=== PATIENT | male | born 2000 | race Caucasian/White ===

== ENCOUNTER 2023-12-28 15:19 | Inpatient (IN) ==
--- NOTE | 2023-12-28 15:32 | ED Triage Note ---
Date of Service December 28, 2023 Provider in Triage Author: Mar Silveira History of Present Illness This patient was briefly evaluated while in triage. An abbreviated physical exam was performed. This patient is a 23-year-old Male who presents to the ED for evaluation of abdominal pain. Pt. states pain moved to the "lower right. Now it's kind of between my back and stomach." Pt. denies nausea or vomiting. Wasn't hungry this morning but ate anyway. States the pain started at 6am. Denies fever. No diarrhea or constipation. No history of abdominal surgery. Physical Exam VITALS: Vitals are noted on the nurse's note and reviewed by myself. GENERAL: This is a 23 year old male, in no acute distress, nondiaphoretic, well- developed well-nourished. SKIN: No obvious rashes, edema, erythema HEAD: Normocephalic atraumatic. EYES: Conjunctivae without injection, sclerae without icterus. NECK: No JVD. LUNGS: No retractions or accessory muscle use. MUSCULOSKELETAL: Normal gait. NEURO: Patient was alert and oriented to person place and time. No focal neurological deficits. Initial orders for labs and / or imaging were placed and patient was placed in the waiting area until a bed is available. Please see further documentation for the full ED course.
[2023-12-28] MEDS: SODIUM CHLORIDE 0.9% 1,000 ML IV STA (17:50)
[2023-12-28 17:56] LABS: Basophils # (auto) 0.08 K/uL (0.00-0.20); Basophils % (auto) 0.7 %; Eosinophils # (auto) 0.06 K/uL (0.00-0.50); Eosinophils % (auto) 0.5 %; Hematocrit (blood only) 45.1 % (42.0-52.0); Hemoglobin 15.3 g/dl (14.0-18.0); Immature Granulocytes # (auto) 0.03 K/uL (0.01-0.20); Immature Granulocytes % (auto) 0.3 %; Lymphocytes # (auto) 1.67 K/uL (1.20-3.40); Lymphocytes % (auto) 15.1 %; Mean Corpuscular Hgb Conc 33.9 g/dL (32.0-36.0); Mean Corpuscular Volume 85.6 fL (80.0-100.0); Monocytes # (auto) 1.14 K/uL (0.11-0.59); Monocytes % (auto) 10.3 %; Neutrophils % (auto) 73.1 %; Platelet Count 270 K/uL (130-400); RDW Coefficient of Variation 11.8 % (11.5-14.5); RDW Standard Deviation 36.7 fL (36.4-46.3); Red Blood Count 5.27 M/uL (4.70-6.10); White Blood Count 11.08 K/ul (4.8-10.8)
[2023-12-28 18:14] LABS: Albumin Globulin Ratio 1.8 (0.9-2); Albumin Level 4.7 gm/dl (3.4-5.0); BUN Creatinine Ratio 12.4 (10-20); Bilirubin,Total 0.6 mg/dl (0.2-1.0); Calcium 9.9 mg/dl (8.6-10.3); Creatinine Clr Calc Pharmacy 105.9 ml/min; Est GFR (African American) 115.4 ml/min; Est GFR (Non-African American) 99.6 ml/min; Globulin 2.6 gm/dl (2.5-4.0); Potassium 3.9 mmol/L (3.5-5.1); Total Protein 7.3 gm/dl (6.0-8.3)
[2023-12-28] MEDS: OPTIRAY 320 100ml IV ONE (20:02)
--- NOTE | 2023-12-28 20:59 | CT Scan Report ---
CT abd pelvis oral and IV con CLINICAL HISTORY: rlq pain ro appy TECHNIQUE: Helical axial images of the abdomen and pelvis were obtained and displayed. Automated dose lowering techniques and/or adjustment according to patient size were utilized for this exam. This e xam was performed with intravenous contrast. CT DOSE: 880.85 mGy.cm COMPARISON: None available at the time of this dictation. FINDINGS: Lower chest: No acute abnormality. Liver: Unremarkable. No focal lesions are seen. Gallbladder and biliary tree: No calcified gallstones. Normal caliber wall. No intra- or extrahepatic biliary ductal dilation. Pancreas: Unremarkable, no focal lesions. Spleen: Unremarkable. Adrenals: Unremarkable. Kidneys and ureters: Unremarkable. Bladder: Unremarkable. Reproductive organs: Unremarkable. Bowel: An appendicolith is seen. The appendix is enlarged measuring up to 9 mm in diameter with surro unding fat stranding. Lymph nodes Retroperitoneal: Unremarkable. Pelvic: Unremarkable. Mesenteric: Unremarkable. Peritoneum: Periappendiceal fat stranding is seen without drainable fluid collection or evidence of p erforation. Vessels: Unremarkable. Abdominal wall: Unremarkable. Bones: Unremarkable. IMPRESSION: Findings compatible with acute appendicitis without evidence of perforation or abscess formation.. ACT 112: Negative or not required by law. Electronically signed by: Jesús Villa M.D. 12/28/2023 8:58 PM
[2023-12-28] MEDS ORDERED: ACETAMINOPHEN 1,000 MG/100 ML VIAL IV PRN (21:25)
[2023-12-28] MEDS ORDERED: ONDANSETRON INJ 2 MG/ML 2 ML VIAL IV PRN (21:25)
--- NOTE | 2023-12-28 21:31 | History & Physical Report ---
Date of Service December 28, 2023 Assessment & Plan (1) Appendicitis: Plan: Due to the patient's clinical presentation, as well as the findings on imaging he will be admitted to the surgical service proceeding as follows: N.p.o. status will be implemented IV fluids will be provided for hydration Analgesics to be provided Antiemetics will be provided Antibiotics will be provided. The treating clinician the emergency department has already ordered Mefoxin and this medication will continue The patient will tentatively be scheduled for a laparoscopic, possible open appendectomy with Dr. Louis Piañ of [facility] on 12/29/2023. At the present time the patient is comfortable and nontoxic-appearing. He only has a slight leukocytosis and is noted to be normotensive without tachycardia or fever. Additional recommendations be forthcoming based on his clinical course as it unfolds, his operative findings, and his postoperative recovery SCDs abuse for DVT prevention, no chemical means due to planned surgery He will be a level 1 full code History of Present Illness Chief Complaint: Abdominal pain Primary Care Provider: NO PCP This is a 23-year-old male who presented to the emergency department secondary to abdominal pain. He notes that his abdominal pain began at approximate 6:00 AM on 12/28/2023. He notes that the pain is somewhat confined to the right flank of his abdomen but is also in the right lower quadrant. He does note that the pain is worse with certain movements. He does not note any palliative factors. He specifically denies any nausea or vomiting and denies any fevers, shakes, or chills. He has never had abdominal surgery in the past. Since arrival to the hospital the patient has had labs and imaging which I independent reviewed. He did have a CT scan of the abdomen pelvis which demonstrated findings compatible with acute appendicitisthe appendix was noted to be dilated to 9 mm with some surrounding fat stranding and an appendicolith. There is no evidence of perforation or abscess. Labs included CBC were white blood cell count was elevated 11.0. Hemoglobin and hematocrit as well as the platelet count were normal. Chemistry profile showed sodium and potassium as well as the BUN and creatinine were normal. There is no elevation of LFTs or lipase. At the time of my interview the patient was resting comfortably in bed he was in no distress. Concerning past medical history patient denies any current or past medical problems Concerning past surgical history he denies any prior surgeries Concerning social history the patient notes he vapes daily Concerning family history he does note his grandmother has diabetes Allergies Allergy/AdvReac Type Severity Reaction Status Date / Time No Known Allergies Allergy Mild Verified 12/28/23 21:36 Home Medications Medication Instructions Recorded Confirmed Type No Known Home Medications 12/28/23 12/28/23 History Past Med/Surg History Problem List (Updated 12/29/23 @ 07:13 by Rene Jensen DO) Encounter for pre-operative examination Appendicitis (Acute) Medical History No pertinent past medical history No pertinent family history Surgical History No pertinent past surgical history Social History Smoking Status: Current every day smoker Tobacco Type: E-cigarettes / Vaping Do You Dip or Chew Tobacco: No; Hx Alcohol Use: Yes Alcohol type: beer Hx Substance Use: No Preferred Language: Amharic Communication Ability: Effective Clearing Hand Required: No Beliefs That Will Affect Care: None Current Living Situation: Family Feels Safe at Home: Yes Safety Concerns: Feels Safe At This Time Assistive Devices: None Review of Systems Review of Systems: All systems reviewed & are unremarkable except as noted in HPI & below Physical Exam Constitutional: WD/WN, vitals as above Eyes: no conjunctival abnormality ENMT: Ears: no hearing impairment and no external ear abnormality Mouth: no oropharynx abnormality Oral mucous membranes are moist Neck: trachea midline Respiratory: normal respiratory effort; no respiratory distress and no labored breathing Cardiovascular: Rate/Rhythm: regular rate and regular rhythm Vessels: radial pulses present Gastrointestinal (Abdomen): Abdomen is soft and nondistended. It is also noted to be nonrigid. The patient did have pain with palpation in the right lower quadrant over McBurney's point. There is no rebound tenderness or guarding at the time of my exam. Musculoskeletal: No calf tenderness Skin: no rashes Neurologic: moves all extremities Psychiatric: A+Ox3, euthymic affect Results & Data Results & Data Vital Signs (Past 12 Hours) Vital Signs Temp Pulse Pulse Resp BP BP Pulse Ox 12/28/23 19:21 62 19 99 12/28/23 19:20 61 19 123/83 99 12/28/23 15:31 36.7 C 69 14 136/73 98 O2 Del Method 12/28/23 19:21 Room Air 12/28/23 19:20 Room Air 12/28/23 15:31 Room Air Supervising Physician Co-Signing Physician Notes I personally saw and evaluated the patient with Rolo Rainey PA-C and agree with the assessment and plan. 23 yo male with acute appendicitis CT images and results were personally viewed and interpreted by myself Admit to surgery NPO/ABX Will plan on laparoscopic appendectomy, possible open tomorrow PG Care Time/CCT Total # of Minutes Spent Total Time Spent with Patient: Total time spent is greater than 50% in coordination of care (as documented) at patient's floor/unit and/or counseling patient: Coding Level of Care Code 36556 INT INP/OBS CARE 3/75MIN Diagnoses Appendicitis K37
[2023-12-28] MEDS: cefOXitin 2,000 MG/60 ML BAG IV STA (21:37)
[2023-12-28] MEDS: SODIUM CHLORIDE 0.9% 1,000 ML IV SCH (21:39)
[2023-12-28 22:20] LABS: Partial Thromboplastin Time 27 Seconds (21-31)
[2023-12-28] MEDS: MoRPHine SULFATE 4 MG/ML 1 ML CARP\\VIAL IV PRN (22:43)
--- NOTE | 2023-12-28 23:35 | Emergency Department Note ---
History of Present Illness General Chief Complaint: Abdominal Pain Stated Complaint: LOWER RIGHT ABD PAIN Time Seen by Provider: 12/28/23 16:34 History of Present Illness Provider Complaint: abdominal pain Onset (ago): 1 day(s) Pain Consistency: constant Location: periumbilical Radiation: RLQ Severity: moderate Maximum Pain Intensity: 7 Current Pain Intensity: 7 Quality: + stabbing and + sharp Relieved By: + nothing Exacerbated By: + nothing Context: no foreign travel, no possible food poisoning, no sick contacts, no recent antibiotic use, no recent surgery/procedure or no recent injury Associated Symptoms: + nausea; no vomiting, no diarrhea, no fever, no chills, no constipation, no dysuria, no hematemesis, no hematochezia, no melena, no hematuria, no anorexia, no headache, no neck pain, no chest pain and no breathing difficulty Home Medications Medication Instructions Recorded Confirmed Type No Known Home Medications 12/28/23 12/28/23 History Allergies Allergy/AdvReac Type Severity Reaction Status Date / Time No Known Allergies Allergy Mild Verified 12/28/23 21:36 Past Med/Surg History Problem List (Updated 12/28/23 @ 23:34 by Emanuel Lobato MD) Appendicitis (Acute) Medical History No pertinent past medical history No pertinent family history Surgical History No pertinent past surgical history Social History Smoking Status: Current every day smoker Tobacco Type: E-cigarettes / Vaping Do You Dip or Chew Tobacco: No; Hx Alcohol Use: Yes Alcohol type: beer Hx Substance Use: No Preferred Language: Frisian Communication Ability: Effective Educational Resource Coordinator Required: No Beliefs That Will Affect Care: None Current Living Situation: Family Feels Safe at Home: Yes Safety Concerns: Feels Safe At This Time Assistive Devices: None Physical Exam 2 Vital Signs: Vital Signs - 24 hr 12/28/23 15:31 12/28/23 19:20 12/28/23 19:21 Temperature 36.7 C Temperature Source Oral Pulse Rate 69 62 Pulse Rate [Finger ] 61 Pulse Rhythm Regular Pulse Rhythm [Fing er] Regular Respiratory Rate 14 19 19 Respiratory Effort / Characteristics Non-Labored Sponta neous Respiratory Depth Normal Normal Respiratory Patter n Regular Blood Pressure 136/73 Blood Pressure [Ri ght Arm] 123/83 Blood Pressure Monika n 94 Blood Pressure Monika n [Right Arm] 96 Pulse Oximetry 98 99 99 Oxygen Delivery Me thod Room Air Room Air Room Air Sepsis Recent Feve r Within 48 Hours No Sepsis New/Unexpla ined Change in Men paras Status No Sepsis Action Take n by Nursing No Action Required Physical Exam: Physical Exam GENERAL: She is oriented to person, place, and time. She appears well-developed and well-nourished. She does not appear distressed. HENT: Exam performed. -Head: Normocephalic and atraumatic. -Right Ear: External ear normal. No mastoid erythema -Left Ear: External ear normal. No mastoid erythema -Mouth/Throat: The oropharynx is clear and moist. No trismus in the jaw. No dental abscesses or uvula swelling. No oropharyngeal exudate or tonsillar abscesses. EYES: Conjunctivae and EOM are normal.Right eye exhibits no discharge. Left eye exhibits no discharge. No scleral icterus. NECK: Normal range of motion. Neck supple. No JVD present. No tracheal deviation and normal range of motion present. CV: Normal rate, regular rhythm, normal heart sounds and intact distal pulses. There is no peripheral edema. Palpable radial pulses bue. PULM/CHEST: Effort normal and breath sounds normal. No respiratory distress. No stridor. She has no wheezes. She has no rales. -Chest Wall: She exhibits no tenderness. ABD: The abdomen is soft. Bowel sounds are normal. She has no distension. No mass is present. There is tenderness to palpation the right lower quadrant. There is no rebound, no guarding, no Sheets's sign. Rovsig negative MUSC/SKEL: Normal range of motion. There is no peripheral edema, tenderness or deformity. NEURO: Motor and sensation grossly intact. SKIN: Skin is warm and dry. She is not diaphoretic. PSYCH: She has a normal mood and affect. Behavior is normal. Judgment and thought content normal. Course Course 163: The patient was evaluated in room D2. A complete history and physical exam was performed 2100: Vital signs stable. White blood cell count 11. CT shows appendicitis. Patient be admitted to the general surgery team. Cefoxitin ordered for patient. Administered Medications Sodium Chloride (Nss) 1,000 mls @ 125 mls/hr IV .Q8H SLIM Stop: 01/27/24 21:29 Last Admin: 12/28/23 21:39 Dose: 125 mls/hr Documented By: ELPIDIO Morphine Sulfate (Morphine Sulfate 4 Mg/Ml 1 Ml Carp\Vial) 3 mg IV Q3H PRN PRN Reason: Severe Pain (Scale 7, 8, 9,10) Stop: 01/11/24 21:24 Last Admin: 12/28/23 22:43 Dose: 3 mg Documented By: ISABEL Discontinued Medications Sodium Chloride (Nss) 1,000 mls @ 999 mls/hr IV .Q1H1M STA Stop: 12/28/23 16:32 Last Infusion: 12/28/23 19:21 Dose: Infused Documented By: Admin: 12/28/23 17:50 Dose: 999 mls/hr Documented By: FENG Cefoxitin Sodium (Mefoxin) 2,000 mg in 60 mls @ 100 mls/hr IV NOW STA Stop: 12/28/23 21:41 Last Infusion: 12/28/23 22:45 Dose: Infused Documented By: Admin: 12/28/23 21:37 Dose: 100 mls/hr Documented By: ELPIDIO Ioversol (Optiray 320 100ml) 92 ml IV ONCE ONE Stop: 12/28/23 20:03 Last Admin: 12/28/23 20:02 Dose: 92 ml Documented By: LEONARDO Medical Decision Making Laboratory Data Attestation: I reviewed the patient's lab results. 12/28/23 17:34 12/28/23 17:34 Lab Results 12/28/23 Range/Units 17:34 WBC 11.08 H (4.8-10.8) K/ul RBC 5.27 (4.70-6.10) M/uL Hgb 15.3 (14.0-18.0) g/dl Hct 45.1 (42.0-52.0) % MCV 85.6 (80.0-100.0) fL MCH 29.0 (25.0-34.0) pg MCHC 33.9 (32.0-36.0) g/dL RDW Std Deviation 36.7 (36.4-46.3) fL RDW Coeff of Anais 11.8 (11.5-14.5) % Plt Count 270 (130-400) K/uL MPV 9.0 L (9.4-12.4) fL Immature Gran % (Auto) 0.3 % Neut % (Auto) 73.1 % Lymph % (Auto) 15.1 % [place] % (Auto) 10.3 % Eos % (Auto) 0.5 % Baso % (Auto) 0.7 % Neut # (Auto) 8.10 H (1.40-6.50) K/uL Lymph # (Auto) 1.67 (1.20-3.40) K/uL [place] # (Auto) 1.14 H (0.11-0.59) K/uL Eos # (Auto) 0.06 (0.00-0.50) K/uL Baso # (Auto) 0.08 (0.00-0.20) K/uL Immature Gran # (Auto) 0.03 (0.01-0.20) K/uL PT 11.0 (9.0-12.0) Seconds INR 1.0 (0.9-1.1) APTT 27 (21-31) Seconds PTT Ratio 1.0 Sodium 137 (136-145) mmol/L Potassium 3.9 (3.5-5.1) mmol/L Chloride 101 (98-107) mmol/L Carbon Dioxide 31 (21-32) mmol/L Anion Gap 5 (3-11) BUN 13 (6-23) mg/dl Creatinine 1.05 (0.6-1.4) mg/dl Est Cr Clr Drug Dosing 105.9 ml/min Est GFR ( Amer) 115.4 ml/min Est GFR (Non-Af Amer) 99.6 ml/min BUN/Creatinine Ratio 12.4 (10-20) Glucose 90 (70-99(Fasting)) mg/dl Calcium 9.9 (8.6-10.3) mg/dl Total Bilirubin 0.6 (0.2-1.0) mg/dl AST 15 (13-39) U/L ALT 15 (7-52) U/L Alkaline Phosphatase 50 (34-104) U/L Total Protein 7.3 (6.0-8.3) gm/dl Albumin 4.7 (3.4-5.0) gm/dl Globulin 2.6 (2.5-4.0) gm/dl Albumin/Globulin Ratio 1.8 (0.9-2) Lipase 23 (11-82) U/L Imaging Data Radiologist's Impression: Abdomen/Pelvis CT 12/28/23 17:33 CT abd pelvis oral and IV con CLINICAL HISTORY: rlq pain ro appy TECHNIQUE: Helical axial images of the abdomen and pelvis were obtained and displayed. Automated dose lowering techniques and/or adjustment according to patient size were utilized for this exam. This exam was performed with intravenous contrast. CT DOSE: 880.85 mGy.cm COMPARISON: None available at the time of this dictation. FINDINGS: Lower chest: No acute abnormality. Liver: Unremarkable. No focal lesions are seen. Gallbladder and biliary tree: No calcified gallstones. Normal caliber wall. No intra- or extrahepatic biliary ductal dilation. Pancreas: Unremarkable, no focal lesions. Spleen: Unremarkable. Adrenals: Unremarkable. Kidneys and ureters: Unremarkable. Bladder: Unremarkable. Reproductive organs: Unremarkable. Bowel: An appendicolith is seen. The appendix is enlarged measuring up to 9 mm in diameter with surrounding fat stranding. Lymph nodes Retroperitoneal: Unremarkable. Pelvic: Unremarkable. Mesenteric: Unremarkable. Peritoneum: Periappendiceal fat stranding is seen without drainable fluid collection or evidence of perforation. Vessels: Unremarkable. Abdominal wall: Unremarkable. Bones: Unremarkable. IMPRESSION: Findings compatible with acute appendicitis without evidence of perforation or abscess formation.. ACT 112: Negative or not required by law. Electronically signed by: Jesús Villa M.D. 12/28/2023 8:58 PM MDM Narrative Vital signs stable. White blood cell count 11. CT shows appendicitis. Patient be admitted to the general surgery team. Cefoxitin ordered for patient. Impression & Plan Appendicitis Discharge Plan Visit Data Chief Complaint: Abdominal Pain Stated Complaint: LOWER RIGHT ABD PAIN ED Provider: Emanuel Lobato Discharge Problem: Appendicitis Patient Disposition: Admitted As Inpatient Discharge Instructions Interventions: ED Discharge Assessment Last Done: 12/28/23 21:50 Discharge Problem: Appendicitis Qualifiers: Appendicitis type: acute appendicitis Acute appendicitis type: unspecified acute appendicitis type Qualified Code(s): K35.80 - Unspecified acute appendicitis
[2023-12-29 00:15] LABS: Appearance Urine Clear (Clear); Bilirubin Urine Negative (Negative); Blood Urine Negative (Negative); Color Urine Yellow; Glucose Urine UA Negative (Negative); Ketones Urine Negative (Negative); Leukocyte Esterase Urine Negative (Negative); Nitrite Urine Negative (Negative); Protein Urine Negative (Negative); Specific Gravity Urine 1.026 (1.000-1.030); Urobilinogen Urine Negative (Negative); pH Urine 7.5 (4.5-7.5)
[2023-12-29] MEDS: cefOXitin 2,000 MG in DEXTROSE 5 % MINI-B 50 ML IV SCH (03:05)
[2023-12-29 06:55] LABS: Basophils # (auto) 0.06 K/uL (0.00-0.20); Basophils % (auto) 0.5 %; Eosinophils # (auto) 0.08 K/uL (0.00-0.50); Eosinophils % (auto) 0.7 %; Hematocrit (blood only) 42.7 % (42.0-52.0); Hemoglobin 14.7 g/dl (14.0-18.0); Immature Granulocytes # (auto) 0.03 K/uL (0.01-0.20); Immature Granulocytes % (auto) 0.2 %; Lymphocytes # (auto) 1.64 K/uL (1.20-3.40); Lymphocytes % (auto) 13.3 %; Mean Corpuscular Hemoglobin 29.2 pg (25.0-34.0); Mean Corpuscular Hgb Conc 34.4 g/dL (32.0-36.0); Mean Corpuscular Volume 84.7 fL (80.0-100.0); Monocytes # (auto) 1.54 K/uL (0.11-0.59); Monocytes % (auto) 12.5 %; Neutrophils # (auto) 8.94 K/uL (1.40-6.50); Neutrophils % (auto) 72.8 %; Platelet Count 232 K/uL (130-400); RDW Coefficient of Variation 11.9 % (11.5-14.5); Red Blood Count 5.04 M/uL (4.70-6.10); White Blood Count 12.29 K/ul (4.8-10.8)
[2023-12-29 07:09] LABS: BUN Creatinine Ratio 8.2 (10-20); Calcium 9.4 mg/dl (8.6-10.3); Creatinine Clr Calc Pharmacy 114.6 ml/min; Est GFR (Non-African American) 109.6 ml/min
--- NOTE | 2023-12-29 07:13 | Anesthesiology Consultation ---
Date of Service December 29, 2023 Assessment & Plan (1) Encounter for pre-operative examination: Chart Review Chart Review: Acceptable Risk for Surgery and Patient NOT seen in Pre Admission Testing Consults Requested none History Surgery Operation Date: 12/29/23 07:00 Proposed Procedures p Laparoscopic Appendectomy, Possible Open - Louis Blake Piña DO Height/Weight Height: 5 ft 8 in Weight: 72.2 kg Allergies Allergy/AdvReac Type Severity Reaction Status Date / Time No Known Allergies Allergy Mild Verified 12/28/23 21:36 Medications Home Medications Medication Instructions Recorded Confirmed Last Taken No Known Home Medications 12/28/23 12/28/23 Unknown Active Medications Generic Name Dose Route Start Last Admin Trade Name Freq PRN Reason Stop Dose Admin Sodium Chloride 1,000 mls @ 125 mls/hr 12/28/23 21:30 12/29/23 06:27 Nss IV 01/27/24 21:29 125 mls/hr .Q8H SLIM Administration Cefoxitin Sodium 2,000 mg/ 50 mls @ 100 mls/hr 12/29/23 04:00 12/29/23 04:21 Dextrose IV 01/08/24 03:59 Infused Q6H SLIM Infusion Protocol Morphine Sulfate 3 mg 12/28/23 21:25 12/28/23 22:43 Morphine Sulfate 4 Mg/Ml 1 Ml Carp\Vial IV 01/11/24 21:24 3 mg Q3H PRN Administration Severe Pain (Scale 7, 8, 9,10) Past Medical History Medical History No pertinent past medical history No pertinent family history Past Surgical History Surgical History No pertinent past surgical history Social History Smoking Status: Current every day smoker Do You Dip or Chew Tobacco: No Hx Alcohol Use: Yes Alcohol type: beer alcohol intake frequency: a few times a week Hx Substance Use: No Physical Exam Vital Signs Last Vital Signs Temp 97.9 F 12/28/23 22:15 Pulse 55 L 12/28/23 22:15 Resp 16 12/28/23 22:15 BP 138/80 12/28/23 22:15 Pulse Ox 100 12/28/23 22:15 O2 Del Method Room Air 12/28/23 22:15 Testing Laboratory Results 12/29/23 06:34 12/29/23 06:34 PT 11.0 Seconds (9.0-12.0) 12/28/23 17:34 INR 1.0 (0.9-1.1) 12/28/23 17:34 APTT 27 Seconds (21-31) 12/28/23 17:34 Urine Color Yellow 12/28/23 23:25 Urine Appearance Clear (Clear) 12/28/23 23:25 Urine pH 7.5 (4.5-7.5) 12/28/23 23:25 Ur Specific [place] 1.026 (1.000-1.030) 12/28/23 23:25 Urine Protein Negative (Negative) 12/28/23 23:25 Urine Glucose (UA) Negative (Negative) 12/28/23 23:25 Urine Ketones Negative (Negative) 12/28/23 23:25 Urine Nitrite Negative (Negative) 12/28/23 23:25 Ur Leukocyte Esterase Negative (Negative) 12/28/23 23:25
--- NOTE | 2023-12-29 09:18 | Surgery Progress Note ---
Date of Service December 29, 2023 Assessment & Plan (1) Appendicitis: Plan: Will plan on laparoscopic appendectomy, possible open today Consent was obtained, risks discussed including bleeding, infection, leak, abscess Admission and Anticipated Discharge Date Admission Date: December 28, 2023 Subjective Pt seen and examined. Pain controlled. Afebrile. Review of Systems Constitutional: no fever and no chills Physical Exam Constitutional: WD/WN, vitals as above Gastrointestinal (Abdomen): Inspection/Auscultation: abdomen normal to inspection; abdomen not distended Percussion/Palpation: + abdomen tender (RLQ) and abdomen soft; no guarding Results & Data Vital Signs (Past 12 Hours) Vital Signs Temp Pulse Resp BP Pulse Ox O2 Del Method 12/29/23 07:58 Room Air 12/29/23 07:18 36.6 C 65 18 100/67 97 Room Air 12/28/23 22:15 36.6 C 55 L 16 138/80 100 Room Air PG Care Time/CCT Total # of Minutes Spent Total Time Spent with Patient: Total time spent is greater than 50% in coordination of care (as documented) at patient's floor/unit and/or counseling patient: Coding Level of Care Code 02459 SUB INP/OBS CARE 07/28MIN Diagnoses Appendicitis K35.80 Acute appendicitis type: unspecified acute appendicitis type Appendicitis type: acute appendicitis (1) Appendicitis Acute appendicitis type: unspecified acute appendicitis type Appendicitis type: acute appendicitis Qualified Code(s): K35.80 - Unspecified acute appendicitis
[2023-12-29] MEDS ORDERED: PROPOFOL IV EMULSION 10 MG/ML 20 ML VIAL IV ONE (09:29)
[2023-12-29] MEDS ORDERED: MIDAZOLAM HCL 1 MG/ML 2ML VIAL ONE (09:29)
[2023-12-29] MEDS ORDERED: ONDANSETRON INJ 2 MG/ML 2 ML VIAL ONE (09:29)
[2023-12-29] MEDS ORDERED: ROCURONIUM BROMIDE 10 MG/ML 5 ML VIAL IV ONE (09:29)
[2023-12-29] MEDS ORDERED: LIDOCAINE 2% 2 ML VIAL/AMP(20MG/ML) INFIL ONE (09:29)
[2023-12-29] MEDS ORDERED: DEXAMETHASONE SOD INJ 4 MG/ML VIAL ONE (09:29)
[2023-12-29] MEDS ORDERED: fentaNYL citrate PF 100 MCG/2 ML VIAL ONE (09:30)
[2023-12-29] MEDS: LACTATED RINGER'S 1,000 ML IV SCH (09:40)
[2023-12-29] MEDS ORDERED: ONDANSETRON INJ 2 MG/ML 2 ML VIAL IV PRN (09:56)
[2023-12-29] MEDS ORDERED: PROMETHAZINE HCL 6.25 MG in SODIUM CHLORIDE 0.9% 50 ML IV PRN (09:56)
[2023-12-29] MEDS ORDERED: ATROPINE SULFATE 0.1 MG/ML 10ML SYR IV PRN (09:56)
[2023-12-29] MEDS ORDERED: KETOROLAC 30 MG/ML VIAL IV PRN (09:56)
[2023-12-29] MEDS ORDERED: fentaNYL citrate PF 100 MCG/2 ML VIAL IV PRN (09:56)
[2023-12-29] MEDS ORDERED: SUGAMMADEX SODIUM 200 MG/2 ML VIAL IV ONE (11:01)
[2023-12-29] MEDS ORDERED: KETOROLAC 30 MG/ML VIAL ONE (11:01)
[2023-12-29] MEDS: BUPIVACAINE/EPINEPHRINE 0.25% 1:200,000 30 ML VIAL ONE (11:01)
--- NOTE | 2023-12-29 11:10 | Post Operative Brief Note ---
PG Immediate Post Op with CF Date of Surgery December 29, 2023 Pre & Post Diagnosis Operation Date: 12/29/23 07:00 Pre-Op Diagnosis: Acute Appendicitis Post-Op Diagnosis: Acute Appendicitis without perforation I identified the patient and participated in the time-out.: Yes Procedure Operation Date: 12/29/23 07:00 Actual Procedures p Laparoscopic Appendectomy(Not Applicable) - Louis Piña DO Surgeon Louis Piña DO Manager Systems Anne Collins PA-C Estimated Blood Loss 5 Findings Consistent with Post-Op Diagnosis Specimens Specimen Description: A. Appendix Drains Tripp Catheter (inserted intra-op) Anesthesia Type General Complications none Disposition Disposition: Recovery Room
--- NOTE | 2023-12-29 11:12 | Operative Report ---
PG Post Operative Report Pre & Post Diagnosis Operation Date: 12/29/23 07:00 Pre-Op Diagnosis: Acute Appendicitis Post-Op Diagnosis: Acute Appendicitis without perforation I identified the patient and participated in the time-out.: Yes Procedure Operation Date: 12/29/23 07:00 Actual Procedures p Laparoscopic Appendectomy(Not Applicable) - Louis Piña DO Surgeon Louis Piña DO Process Assistant Anne Collins PA-C Estimated Blood Loss 5 Findings Consistent with Post-Op Diagnosis Specimens Appendix to pathology Drains None Anesthesia Type General Complications none Disposition Disposition: Recovery Room Indications 23 yo male with acute appendicitis Description of Procedure The patient was brought to the OR and placed in the supine position and SCD's placed. At this time he underwent general endotracheal anesthesia without incident. At this time a Tripp catheter was placed under sterile conditions. His abdomen was prepped and draped in the usual sterile fashion. He was given appropriate pre-operative antibiotics. A timeout was called, the procedure was verified as Laparoscopic appendectomy, possible open. Surgical, anesthesia and nursing teams agreed and the procedure was begun. After injection of 0.25% Marcaine with epinephrine, a supraumbilical incision was made using a #11 blade scalpel and carried down to the fascia with a hemostat. The abdomen was then elevated with towel clamps and entered using the Veress needle confirming position using the saline drop test. Pneumoperitoneum was established and 5mm trocar was placed. Laparoscope was introduced. No injury was seen from our entrance to the abdomen. At this time a 5mm suprapubic port and 12mm LLQ port were placed under direct visualization. The patient was placed in Trendelenburg and rotated to the left. At this time the appendix was visualized and the tip was freed and elevated toward the abdominal wall. The appendix appeared in flamed, dilated and edematous. A window was created in the mesoappendix at the base of the appendix. A 45mm purple load stapler was then fired across the base of the appendix which appeared healthy. The mesoappendix was then taken using Harmonic device. The appendix was then placed in an Endocatch bag and removed through the LLQ port site. Staple line was inspected and was intact. Hemostasis was complete. The 12 mm port was then closed at the fascial level using a 0 Vicryl suture using the suture passer. All ports were removed under direct visualization and no bleeding was noted. The abdomen was desufflated and the skin was closed using 4-0 Monocryl in a subcuticular fashion. Sterile dressings were applied. Tripp catheter was removed. The patient was then awakened from anesthesia having remained stable throughout the entire case and transported to PACU. All needle and sponge counts were correct x 2. The physician social services assistant was present and scrubbed for the entire procedure. She was essential in positioning, prepping and draping the patient, retraction and exposure, driving the laparoscope, closure of the incisions and placement of the dressings. I attest to the content of the Intraoperative Record and any orders documented therein. Any exceptions are noted below.
[2023-12-29] MEDS ORDERED: traMADol HCL 50 MG TABLET PO PRN (12:11)
[2023-12-29] MEDS ORDERED: MoRPHine SULFATE 4 MG/ML 1 ML CARP\\VIAL IV PRN (12:11)
[2023-12-29] MEDS ORDERED: MoRPHine SULFATE 2 MG/ML CARP IV PRN (12:11)
[2023-12-29] MEDS ORDERED: ACETAMINOPHEN 325 MG TAB PO PRN (12:11)
--- NOTE | 2023-12-29 12:16 | Anesthesiology Progress Note ---
Date of Service December 29, 2023 Anesthesia Post Procedure Vital Signs Vital Signs: Temp Pulse Pulse Pulse Resp BP BP 12/29/23 11:50 37 C 77 18 111/67 12/29/23 11:40 78 17 119/68 12/29/23 11:30 81 17 125/78 12/29/23 11:20 36.0 C L 99 H 12 117/72 12/29/23 09:30 37.3 C 82 18 12/29/23 07:58 12/29/23 07:18 36.6 C 65 18 12/28/23 22:15 36.6 C 55 L 16 12/28/23 19:21 62 19 12/28/23 19:20 61 19 12/28/23 15:31 36.7 C 69 14 136/73 BP Pulse Ox O2 Del Method O2 Flow Rate 12/29/23 11:50 94 Room Air 12/29/23 11:40 97 Room Air 12/29/23 11:30 100 Oxymask 3 12/29/23 11:20 98 Oxymask 7 12/29/23 09:30 108/68 97 Room Air 12/29/23 07:58 Room Air 12/29/23 07:18 100/67 97 Room Air 12/28/23 22:15 138/80 100 Room Air 12/28/23 19:21 99 Room Air 12/28/23 19:20 123/83 99 Room Air 12/28/23 15:31 98 Room Air Pain Intensity Right Lower Abdomen: Pain Intensity: 4 Transfer of Care Handoff Completed per policy Notes Mental Status: alert / awake / arousable Patient Amnestic to Procedure: Yes Nausea / Vomiting: adequately controlled Pain: adequately controlled Airway Patency, RR, SpO2: stable & adequate BP & HR: stable & adequate Hydration State: stable & adequate Anesthetic Complications: no major complications apparent
[2023-12-29] MEDS: traMADol HCL 50 MG TABLET PO PRN (15:03)
== END 2023-12-29 18:14 | disposition home or self-care (01) | DRG 399 ==
LOC: ED 15:19 → 3W 21:33